=== PATIENT | male | born 1955 | race African-American/Black ===

== ENCOUNTER 2018-10-21 09:28 | Inpatient (IN) ==
--- NOTE | 2018-10-21 09:57 | Diag Imaging Result Doc PS360 ---
EXAM: CHEST-2 VIEWS HISTORY: COUGH TECHNIQUE: Chest two views COMPARISON: 10/12/2018 FINDINGS: The lungs are well expanded. The heart is not enlarged. The vessels are not distended. There are no infiltrates. No pleural effusions. IMPRESSION: No pneumonia. Electronically signed by Min Escobedo 10/21/2018 9:54 AM
--- NOTE | 2018-10-21 10:07 | PROVIDER DOCUMENTATION ---
HPI-General Adult - General Chief Complaint: Cough Stated Complaint: CHEST PAIN,PENA,COUGH Time Seen by Provider: 10/21/18 09:46 Source: patient Allergies/Adverse Reactions: Patient Allergies Allergy/AdvReac Type Severity Reaction Status Date / Time No Known Allergies Allergy Verified 12/15/17 18:06 Home Medications: Home Medication List Medication Instructions Recorded Confirmed Last Taken Type Aspirin 81 mg PO DAILY 12/15/17 12/15/17 Unknown History Atorvastatin Calcium 80 mg PO DAILY 12/15/17 12/15/17 Unknown History Cyclobenzaprine [Flexeril] 5 mg PO TID #30 tablet 12/15/17 Unknown Rx Gabapentin 300 mg PO DAILY 12/15/17 12/15/17 Unknown History Hydrochlorothiazide 25 mg PO DAILY 12/15/17 12/15/17 Unknown History Insulin Humulin 70/30 [Humulin 300 unit .SEE ORDER DIRECTED 12/15/17 12/15/17 Unknown History 70/30] Ledipasvir/Sofosbuvir [Harvoni 1 each PO DAILY 12/15/17 12/15/17 Unknown History 90-400 mg Tablet] Lisinopril 20 mg PO DAILY 12/15/17 12/15/17 Unknown History Loratadine 10 mg PO DAILY 12/15/17 12/15/17 Unknown History Metformin HCl 1,000 mg PO DAILY 12/15/17 12/15/17 Unknown History Metoprolol Tartrate 50 mg PO DAILY 12/15/17 12/15/17 Unknown History Naproxen Sodium [Anaprox Ds] 550 mg PO BID #20 tablet 12/15/17 Unknown Rx Omeprazole 20 mg PO DAILY 12/15/17 12/15/17 Unknown History Cyclobenzaprine [Flexeril] 10 mg PO TID #20 tab 10/12/18 Unknown Rx Ibuprofen [Motrin] 800 mg PO Q8H PRN PRN #20 tab 10/12/18 Unknown Rx - History of Present Illness -Gen Adult Nature of Presenting Problems: Patient is a 63yo M who presents w/ c/o productive cough with yellow sputum and chest pain/soreness from coughing x2 days. Also c/o headache that began yesterday afternoon. Reports his chest only hurts while coughing. The pain does not radiate and patient denies diaphoresis. Denies SOB or cardiac hx other than HTN. Reports his headache is "throbbing." Denies any photophobia, phonophobia, n/v, or visual disturbances. Patient is able to speak in full sentences without evidence of retractions, accessory muscle usage, or signs of respiratory di stress/compromise. PERRLA. A&Ox3. Non-toxic in appearance. Location of Pain/Injury: reports: head, chest Pain Radiation: reports: no radiation Quality of Pain: reports: throbbing, other ("sore") Severity: reports: mild Onset/Duration: reports: 24 hours ago Timing: reports: still present Context/Activities at Onset: reports: none Modifying Factors: improves with: rest. worse with: coughing (causes chest soreness) Associated Symptoms: reports: chest pain (only when coughing), cough, headaches. denies: arm pain, back/neck pain, diaphoresis, diarrhea, dizziness, EENT symptoms, fatigue, fever/chills, loss of appetite, malaise, muscle aches, sinus congestion/drainage, nausea, shortness of breath, syncope, vomiting, weakness Similar Symptoms Previously?: No Recently seen or treated by another doctor?: No Review of Systems - Adult - REVIEW OF SYSTEMS - ADULT Constitutional: denies: chills, fever, fatique Eyes: reports: no symptoms reported Ears, Nose, Mouth & Throat: denies: sinus problem, throat pain Cardiovascular: reports: chest pain (only while coughing). denies: irregular heart rate, palpitations Respiratory: reports: see HPI, cough (productive with yellow sputum). denies: shortness of breath, wheezing Gastrointestinal: denies: abdominal pain, nausea, vomiting Genitourinary: reports: no symptoms reported Musculoskeletal: reports: no symptoms reported Integumentary: reports: no symptoms reported Neurological: reports: headache/migraines. denies: dizziness/vertigo, loss of balance, paresthesia, slurred speech Psychiatric: reports: no symptoms reported Endocrine: reports: no symptoms reported All Other Systems: Reviewed and Negative Past History - Adult - PAST MEDICAL HISTORY-ADULT Review of Records: reports: Old Records Reviewed, Nursing Assessment Review, Medications Reviewed, Social history reviewed & non-contributory. Major Childhood Illnesses: reports: denies history Cardiovascular: reports: denies history, HTN Respiratory: reports: denies history Gastrointestinal: reports: denies history Obstetrical/Gynecological: reports: denies history Genitourinary: reports: denies history Musculoskeletal: reports: denies history Neurological: reports: denies history Endocrine/Immune: reports: denies history, Diabetes Other Conditions: reports: denies history - PRIOR SURGERIES/PROCEDURES Surgical/Procedure History: reports: hernia repair, orthopedic (extremity) (arthroscopy) - IMMUNIZATION STATUS Childhood Immunizations: See Nurse Assessment Flu Vaccine: See Nurse Assessment - FAMILY HISTORY Family History: reviewed, not pertinent - SOCIAL HISTORY Smoking: other (former) Physical Exam-General - PHYSICAL EXAM-ADULT Initial Vital Signs Reviewed: Yes - CONSTITUTIONAL General Appearance: appears well, alert, no apparent distress - EYES Eyes: PERRL/EOMI, pink conjunctivae - HEAD, EARS, NOSE, MOUTH & THROAT HENMT: normocephalic/atraumatic, moist mucous membranes - NECK Neck: non-tender, full range of motion, supple, normal inspection - RESPIRATORY Respiratory: lungs clear, normal breath sounds, no pleuratic chest pain, no respiratory distress, no accessory muscle use, other (chest pain/soreness when coughing). negative: crackles, rales, rhonchi, stridor, wheezing, pain on inspiration, retractions, splinting - CARDIOVASCULAR Cardiovascular: tachycardia (108) - GASTROINTESTINAL (ABDOMEN) Abdominal Exam: normal bowel sounds, non tender, soft - LYMPHATIC Lymphatic: no adenopathy - MUSCULOSKELETAL Back Exam: normal inspection Extremity: normal range of motion, non-tender, normal inspection - SKIN Integumentary: normal color, warm/dry - NEUROLOGIC Neurologic: grossly normal - PSYCHIATRIC Psych/Mental Status: normal mood/affect, normal thought content, normal thought process, oriented x 3 Progress - PLAN OF CARE/RESULTS Progress/Plan/Lab Results: Vital Signs - 8 hr 10/21/18 09:29 Temperature 97.7 F Pulse Rate 108 H Respiratory Rate 17 Blood Pressure 160/73 O2 Sat by Pulse Oximetry 95 Orders Category Date Time Status Saline Loc NOW Care 10/21/18 09:46 Active CHEST-2 VIEWS [RAD] Stat Exams 10/21/18 09:35 Completed CBC WITH ELECTRONIC DIFF [HEME] Stat Lab 10/21/18 09:46 Uncollected COMPREHENSIVE METABOLIC PANEL [CHEM] Stat Lab 10/21/18 09:47 Uncollected EKG [EKG] Stat Ther 10/21/18 09:46 Ordered Lab results, imaging results, and plan of care discussed with patient who verbalizes understanding. Patient notified of his elevated BUN/creatinine. Patient reports he is not sure if this is new for him or not. Hx of DM. Notified by RN of PaO2 on ABG of 88.6% on RA. Patient is currently sound asleep, snoring, lying down, with O2 saturation of 94% on RA. When patient is awake/around, O2 saturations > 95%. Lactate on ABG 3.70. Will order venous lactate. Venous lactate 5.1. IVF ordered and abx ordered for respiratory coverage. Will admit. Result Diagrams: 10/21/18 09:55 10/21/18 09:55 - EKG 1 Time of EKG reading by physician:: 10:05 EKG Read and Signed by:: Piyush Tony EKG Interpretation (*Must complete 3 of following elements*): Normal Rate: 105 Rhythm: Sinus tachycardia with occasional PVCs [place]: normal QRS: normal DE Interval: normal ST Wave: non-specific ST changes Comments: septal infarct, age undetermined - XRAY 1 XRAY: Bilateral XRAY Study: Chest Impression: See EMR Report ([facility] [address] , [address], [place] [address] Department of Imaging Patient: ARTEMIO NINA [facility] Date: 10/21/18#: [id number] : 1955DM Status: PRE ERAcct#: [id number] Age/Sex: 63/MRoom/Bed: Loc: ED Ordering Physician: Piyush Tony MD Family Physician: None,PCP Reason for Procedure: COUGH ___ Signed EXAM: CHEST-2 VIEWS HISTORY: COUGH TECHNIQUE: Chest two views COMPARISON: 10/12/2018 FINDINGS: The lungs are well expanded. The heart is not enlarged. The vessels are not distended. There are no infiltrates. No pleural effusions. IMPRESSION: No pneumonia. Electronically signed by Min Escobedo 10/21/2018 9:54 AM 10/21/18 0954 Interpreting Physician: Min Escobedo MD Dictated Date/Time: 10/21/1852 cc: Piyush Tony MD; None,PCP) - CONSULTS/PCP/HOSPITALIST Notification #1 *Consult/PCP/Hospitalist*: REAGAN Riggins Hospitalist Time Discussed: 13:25 Reason/Comments: Hyperglycemia, lactic acidosis, ARF Consult Disposition: Admit Departure - Departure Date of Disposition Decision: 10/21/18 Time of Disposition Decision: 13:25 DIAGNOSIS: Cough, Lactic acidosis Acute renal failure Qualifiers: Acute renal failure type: unspecified Qualified Code(s): N17.9 - Acute kidney failure, unspecified DM2 (diabetes mellitus, type 2) Qualifiers: Diabetes mellitus long term care pharmacist insulin use: unspecified halfway insulin use status Diabetes mellitus complication status: with unspecified complications Qualified Code(s): E11.8 - Type 2 diabetes mellitus with unspecified complications Disposition: HOME 01 Certified Medical Emergency: Emergent Condition: Stable Referrals and Follow-Ups: None,PCP [Primary Care Provider] - - Critical Care Note This patient required my direct & personal management of CC.: No Attestation - Physician/ SHELTON Attestation Patient care was provided by Advanced Practice Provider:: Yes Advanced Practice Provider:: Karmen Rosa Advanced Practice Provider documentation review:: The Mid-level provider documentation, treatment plan and medical decision making was reviewed by the physician who agrees with all treatment and medical decision making by the P. The physician spent face to face time with patient:: No Advanced Practice Provider documentation review:: Supervising physician onsite and consulted in the evaluation and care of this patient. The physician did not have a face to face encounter with the patient.
[2018-10-21] MEDS ORDERED: MOTRIN PO ONE (10:09)
[2018-10-21 10:28] LABS: BASO# 0.01 X1000 (0.0-0.2); BASO% 0.2 % (0.0-0.8); EOS# 0.03 X1000 (0.0-0.7); EOS% 0.5 % (0.0-10.0); HEMATOCRIT 37.5 % (42.0-52.0); HEMOGLOBIN 12.1 g/dL (14.0-18.0); IMM GRAN# 0.02 X1000 (0.0-0.04); IMM GRAN% 0.3 % (0.0-0.5); LYMPH# 1.28 X1000 (1.2-3.4); LYMPH% 22.3 % (20.5-51.1); MCH 22.9 PG (27-31); MCHC 32.3 g/dL (33-37); MONO# 0.32 X1000 (0.11-0.59); MONO% 5.6 % (1.7-9.3); MPV 8.7 FL (7.4-10.4); NEUT# 4.08 X1000 (1.4-6.5); NEUT% 71.1 % (42.2-75.2); PLT 317 X1000 (130-400); RBC 5.28 XMIL (4.7-6.1); RDW 20.8 % (11.5-14.5); WBC 5.74 X1000 (4.8-10.8)
[2018-10-21 10:41] LABS: ALB/GLOB RATIO 1.6; ALBUMIN 4.2 g/dL (3.5-5.0); CALCIUM 8.6 mg/dL (8.8-10.2); CREATININE 2.3 mg/dL (0.7-1.2); POTASSIUM 5.2 mmol/L (3.5-5.1); TOTAL BILIRUBIN 0.28 mg/dL (0.20-1.00); TOTAL PROTEIN 6.9 g/dL (6.3-8.3)
--- NOTE | 2018-10-21 10:50 | EKG Report ---
Test Performed on : 10/21/2018 09:58:17 AM Test Reason : fall Blood Pressure : / mmHG Vent. Rate : 105 BPM Atrial Rate : 105 BPM P-R Int : 158 ms QRS Dur : 070 ms QT Int : 348 ms P-R-T Axes : 049 -12 058 degrees QTc Int : 459 ms Sinus tachycardia. with occasional premature ventricular complexes. Septal infarct , age undetermined Abnormal ECG When compared with ECG of 08-DEC-2007 12:57, premature ventricular complexes. are now present Septal infarct is now present Unconfirmed Result
[2018-10-21] MEDS ORDERED: NS 1,000 ML IV ONE ×3 (10:59→15:06)
[2018-10-21] MEDS ORDERED: HUMULIN R IV ONE (11:02)
[2018-10-21 11:43] LABS: BE -8.4 mmoll (-3.0-3.0); BLOOD TYPE ARTERIAL; HCO3-(ACT) 18.2 mmoll (20.0-26.0); METHB 0.9 % (0.0-1.5); O2(CT) 13.9 mL/dL (15.0-23.0); PCO2(98.6) 35 mmHg (35-45); PO2(98.6) 69 mmHg (60-100); SAMPLE BLOOD; SAO2 94.2 % (95.0-100.0); THB 11.1 g/dL (11.5-17.4)
[2018-10-21 11:45] LABS: O2HB 88.6 % (95.0-99.0)
[2018-10-21] MEDS ORDERED: LEVAQUIN 750 MG/D5W 750 MG/150 ML IVPB IV ONE (12:20)
[2018-10-21 13:04] LABS: CALCIUM 8.7 mg/dL (8.8-10.2); CREATININE 2.1 mg/dL (0.7-1.2); POTASSIUM 5.1 mmol/L (3.5-5.1)
[2018-10-21 13:07] LABS: INR 1.11; PROTIME 15.2 Seconds (11.0-16.0)
[2018-10-21 13:31] LABS: CK INDEX 1.3 (0.0-2.5); CK-MB 10.41 ng/mL (0.0-5.0)
[2018-10-21 14:29] LABS: CALCIUM 8.6 mg/dL (8.8-10.2); CREATININE 2.1 mg/dL (0.7-1.2); POTASSIUM 4.8 mmol/L (3.5-5.1)
[2018-10-21] MEDS ORDERED: SODIUM PHOSPHATE 30 MMOL in D5W 250 ML IV PRN (14:41)
[2018-10-21] MEDS ORDERED: POTASSIUM CHLORIDE 10% LIQUID PO PRN (14:41)
[2018-10-21] MEDS ORDERED: 1/2 NS 1,000 ML IV SCH (14:41)
[2018-10-21] MEDS ORDERED: MAGNESIUM SULFATE 2 GM/S.W.I. 2 GM/50 ML IVPB IV PRN (14:41)
[2018-10-21] MEDS ORDERED: D5 NS 1,000 ML IV PRN (14:41)
[2018-10-21] MEDS ORDERED: ZOFRAN IV PRN (14:41)
[2018-10-21] MEDS ORDERED: D50W SYRINGE IV PRN (14:41)
[2018-10-21] MEDS ORDERED: POTASSIUM CHLORIDE 20 MEQ in NS 100 ML IV PRN (14:41)
[2018-10-21] MEDS ORDERED: POTASSIUM CHLORIDE 40 MEQ in NS 250 ML IV PRN (14:41)
[2018-10-21] MEDS ORDERED: POTASSIUM CHLORIDE 20% LIQUID PO PRN (14:41)
[2018-10-21] MEDS ORDERED: HUMULIN R 100 UNIT in NS 100 ML IV SCH (14:41)
[2018-10-21] MEDS ORDERED: COMPAZINE IV PRN (14:41)
[2018-10-21] MEDS ORDERED: TYLENOL PO PRN (14:41)
[2018-10-21] MEDS ORDERED: NS 1,000 ML IV SCH (14:41)
[2018-10-21 15:14] LABS: URINE SOURCE CLEAN CATCH
[2018-10-21 15:31] LABS: BILIRUBIN URINE NEGATIVE (NEGATIVE); BLOOD URINE NEGATIVE (NEGATIVE); COLOR STRAW; GLUCOSE URINE >1000 mg/dL (NEGATIVE); KETONE URINE TRACE mg/dL (NEGATIVE); LEUKOCYTES URINE NEGATIVE (NEGATIVE); NITRITE URINE NEGATIVE (NEGATIVE); PROTEIN URINE NEGATIVE (NEGATIVE); SP GRAVITY URINE 1.016; TURBIDITY URINE CLEAR (CLEAR); UROBILINOGEN URINE NORMAL (NORMAL)
[2018-10-21 15:32] LABS: UR EPITHELIAL CELLS <10 /HPF (<10); URINE BACTERIA NEGATIVE /HPF; URINE RBC <10 /HPF (<10); URINE WBC <10 /HPF (<10)
[2018-10-21 15:37] LABS: UR AMPHETAMINES QUAL NONE DETECTED (NONE DETECT); UR BARBITUATES QUAL NONE DETECTED (NONE DETECT); UR BENZODIAZEPIN QUAL NONE DETECTED (NONE DETECT); UR CANNABINOIDS QUAL NONE DETECTED (NONE DETECT); UR COCAINE QUAL PRESUMPTIVE POSITIVE (NONE DETECT); UR METHADONE QUAL NONE DETECTED (NONE DETECT); UR OPIATES QUAL NONE DETECTED (NONE DETECT); UR OXYCODONE QUAL NONE DETECTED (NONE DETECT); UR PCP QUAL NONE DETECTED (NONE DETECT)
[2018-10-21 16:02] LABS: CALCIUM 8.4 mg/dL (8.8-10.2); MAGNESIUM 2.3 mg/dL (1.5-2.7); PHOSPHORUS 3.6 mg/dL (2.7-4.5); POTASSIUM 4.8 mmol/L (3.5-5.1)
[2018-10-21] MEDS ORDERED: FLEXERIL PO SCH (17:00)
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
[2018-10-21 17:56] LABS: CK INDEX 1.4 (0.0-2.5); CK-MB 8.86 ng/mL (0.0-5.0)
[2018-10-21] MEDS: HUMALOG SUBQ SCH ×2 (18:20→20:43)
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
[2018-10-21] MEDS: LR 1,000 ML IV SCH (19:20)
[2018-10-22] MEDS: HUMALOG SUBQ SCH ×5 (01:26→18:16)
[2018-10-22 04:55] LABS: ALLEN TEST YES; BE -3.8 mmoll (-3.0-3.0); BLOOD TYPE ARTERIAL; HCO3-(ACT) 21.8 mmoll (20.0-26.0); METHB 1.2 % (0.0-1.5); O2(CT) 16.9 mL/dL (15.0-23.0); O2HB 91.8 % (95.0-99.0); PCO2(98.6) 39 mmHg (35-45); PO2(98.6) 73 mmHg (60-100); SAMPLE BLOOD; SAO2 94.6 % (95.0-100.0); THB 13.1 g/dL (11.5-17.4); pH(98.6) 7.35 (7.35-7.45)
[2018-10-22 04:56] LABS: MODALITY ROOM AIR
[2018-10-22] MEDS: LR 1,000 ML IV SCH ×2 (06:34→18:20)
--- NOTE | 2018-10-22 07:38 | Diag Imaging Result Doc PS360 ---
EXAM: CHEST-PORTABLE INDICATION: FU TECHNIQUE: One view COMPARISON: 10/21/2018 FINDINGS: The lungs are grossly clear. There is no discrete pleural fluid collection or pneumothorax. The cardiomediastinal silhouette and central vasculature are grossly unremarkable. IMPRESSION: No evidence of acute pathology by plain radiograph. Electronically signed by Manohar Quiros 10/22/2018 7:35 AM
--- NOTE | 2018-10-22 07:52 | EKG Report ---
Test Performed on : 10/22/2018 06:40:50 AM Test Reason : FU Blood Pressure : / mmHG Vent. Rate : 068 BPM Atrial Rate : 068 BPM P-R Int : 152 ms QRS Dur : 078 ms QT Int : 416 ms P-R-T Axes : 057 038 053 degrees QTc Int : 442 ms Sinus rhythm. with premature atrial complexes. Otherwise normal ECG When compared with ECG of 21-OCT-2018 09:58, (Unconfirmed) premature ventricular complexes. are no longer present premature atrial complexes. are now present Vent. rate has decreased BY 37 BPM Criteria for Septal infarct are no longer present Confirmed by Marjorie MCFADDEN, Benny Morillo ([id number]) on 10/22/2018 9:44:38 AM
[2018-10-22 07:58] LABS: CALCIUM 8.7 mg/dL (8.8-10.2); CREATININE 1.6 mg/dL (0.7-1.2); POTASSIUM 4.5 mmol/L (3.5-5.1)
[2018-10-22] MEDS ORDERED: NEURONTIN PO SCH (09:00)
[2018-10-22] MEDS ORDERED: ASPIRIN PO SCH (09:00)
[2018-10-22] MEDS ORDERED: CLARITIN PO SCH (09:00)
[2018-10-22] MEDS ORDERED: LOPRESSOR PO SCH ×2 (09:00→21:00)
[2018-10-22] MEDS ORDERED: PRILOSEC PO SCH (09:00)
--- NOTE | 2018-10-22 09:05 | ECHO REPORT ---
ORDER DATE: 10/21/2018 INTERPRETING PHYSICIAN: Dr. Luevano CLINICAL INDICATIONS: Edema, chest pain, cough. M-MODE MEASUREMENTS: Left ventricle end diastole: 3.9 cm. Left ventricle end systole: 1.9 cm. Posterior wall: 1.0 cm. Interventricular septum: 1.0 cm. Left atrium: 2.8 cm. Aortic root: 3.6 cm. SUMMARY OF 2-DIMENSIONAL IMAGIN. Left ventricular function is normal. Ejection fraction of 68%. No wall motion abnormality is noted. 2. The right ventricle appears to be normal. 3. The patient is tachycardic. 4. The aortic valve opens normally. Color flow mapping unremarkable. 5. The tricuspid valve is normal. Color flow mapping unremarkable. 6. The inferior vena cava is not dilated. 7. Pulmonary pressure is estimated at 20-25 mmHg. 8. The pulmonic valve is normal. 9. The aortic valve opens normally. Color flow mapping unremarkable. 10.The mitral valve opens normally. Color flow mapping unremarkable. 11.Pulse wave Doppler of mitral inflow shows normal E/A ratio. 12.Tissue Doppler of septal and lateral mitral annulus averages 10 cm. 13.There is no diastolic dysfunction. 14.There is no pericardial effusion, no mass, and no thrombus. SUMMARY: This echocardiographic study shows: 1. Normal left ventricular function, ejection fraction of 68%. 2. No diastolic dysfunction. 3. No pulmonary hypertension. 4. No valvular dysfunction. 5. A trace or physiological pericardial effusion may be present. The study suggests that this patient's symptoms of edema, cough, are unrelated to any heart condition. cc: MD Reece Kuo MD
[2018-10-22 19:39] VITALS: BP 143/74
[2018-10-22] MEDS ORDERED: LIPITOR PO SCH (21:00)
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
[2018-10-27 01:03] LABS: ALLEN TEST YES
== END 2018-10-22 20:30 | disposition home or self-care (01) | DRG 683 ==
LOC: ED 09:28 → EDIPHOLD 09:29 → 3S 15:37 → EDIPHOLD 16:25 → 3N 16:37
PROVIDERS: ATTEND Internal Medicine
CPT/HCPCS: 71010; 71020; 71045; 71046; 80048; 80053; 80101; 80301; 80307; 80324; 80345; 80346; 80353; 80358; 80361; 80365; 81001; 82009; 82550; 82553; 82805; 82948; 83605; 83735; 83880; 83992; 84100; 84484; 85025; 85610; 85730; 87040; 93005; 93010; 93306; 96361; 96365; 99285; A9270; G0431; G0434; G0479; G0480; J1815; J1956; J7030; J7120; XXXXX